=== PATIENT | female | born 1970 | race Caucasian/White ===

== ENCOUNTER → 2016-11-17 07:41 | Outpatient (CLI) | payer MEDICARE ==
[2011-03-25 07:22] VITALS: BMI 18.8
== END | disposition home or self-care (01) ==
LOC: D.RT 10-25 10:00 → D.RAD 10-25 10:00 → D.RT 10-27 08:00 → D.RAD 10-27 09:00 → D.RT 11-02 14:00
DX: J44.9 Chronic obstructive pulmonary disease, unspecified (principal)

== ENCOUNTER → 2019-02-09 13:27 | Outpatient (CLI) | payer MEDICARE ==
[2011-03-25 07:22] VITALS: BMI 18.8
== END | disposition home or self-care (01) ==
LOC: D.RT 12-08 11:00
PROVIDERS: ATTEND Internal Medicine Pulmonary Disease
DX: J44.9 Chronic obstructive pulmonary disease, unspecified (principal)

== ENCOUNTER → 2019-07-31 10:08 | Outpatient (CLI) | payer MEDICARE ==
[2011-03-25 07:22] VITALS: BMI 18.8
== END | disposition home or self-care (01) ==
LOC: D.RAD 10:06 → EDSTATUS 10:15
PROVIDERS: ATTEND Internal Medicine Pulmonary Disease
DX: R91.1 Solitary pulmonary nodule (principal)